=== PATIENT | male | born 1955 | race African-American/Black ===

== ENCOUNTER 2016-05-07 12:30 | Outpatient (RCR) | payer OTHER ==
[~2016-05-07 12:30] MED LIST: AVODART0.5 MG ORAL; DIVALPROEX SOD500 M2 ORAL; DOC-Q-LACE100 M1 ORAL; FEOSOL1 TAB ORAL; HYDROCORTISO453.6 GM TOPIC; LEVETIRACETAM1000 MG PO; METHADONE HCL10 MG PO; NEXIUM40 MG ORAL; PRAVASTATIN SOD40 M1 ORAL; TAMSULOSIN HCL0.4 MG ORAL; TRAVATAN Z5 ML BOTH EYES
== END 2016-05-20 | disposition home or self-care (01) ==
LOC: PTY 12:30
DX: M54.5 Low back pain (principal)